=== PATIENT | male | born 1960 | race Caucasian/White ===

== ENCOUNTER 2020-02-16 06:25 | Day surgery (SDC) | payer BC ==
[~2020-02-16] VITALS: Ht 177.8 cm; Wt 64.0 kg
[~2020-02-16 06:25] MED LIST: PRILOSEC OTC20 MG PO
--- NOTE | 2020-02-16 08:16 | NUR ---
02/16/20 0816 Laina Hameed 0808 PATIENT ARRIVES TO PACU UNRESPONSIVE TO VERBAL STIMULI. RESP EVEN AND UNLABORED, NC AT 3 LITERS, TURNED OFF ON ARRIVAL TO PACU. 0815 PATIENT SLEEPING. AWAKENS WITH REPEATED VERBAL STIMULI, REPOSITIONS SELF TO BACK, THEN BACK TO SLEEP. RESP EVEN AND UNLABORED, ROOM AIR SATS >90%. NEEDS FREQUENT REMINDERS TO "TAKE A DEEP BREATH."
--- NOTE | 2020-02-16 10:40 | NUR ---
PT ALERT, ORIENTED AND SUPPORTED BY HIS RONNI. PT HAS HAD PREVIOUS SCOPES, ALL QUESTIONS ASKED WERE ANSWERED. GAVE MG, MANAGER CCUKIT TRISTAN IN TO TAKE PT
--- NOTE | 2020-02-16 11:19 | OR ---
[facility] [address], [place] [address] Signed DATE OF OPERATION: 02/16/2020 SURGEON: Jason Silva MD PREOPERATIVE DIAGNOSES: 1. Gastroesophageal reflux disease. 2. History of esophagitis. 3. Hiatal hernia. 4. Mother with colon cancer, age 78. 5. Personal history of rectal polyps, 2011. POSTOPERATIVE DIAGNOSES: 1. Small hiatal hernia. 2. Mild diffuse gastritis. 3. Unremarkable colonoscopy. PROCEDURES: 1. EGD with CLOtest and biopsies of the antrum and GE junction. 2. Colonoscopy without biopsy. ESTIMATED BLOOD LOSS: None. INDICATIONS: Lawrence is a 60-year-old gentleman, asked to see me for a followup upper and lower endoscopy. He mentioned his hiatal hernia and acid reflux for many years. When he was checked the last time, he did have some distal esophagitis. He said he does great so long as he takes his Prilosec. He told me his last upper and lower endoscopy was in 2011. Also, his mother was diagnosed and of colon cancer the same year at age 78, unfortunately was stage IV when diagnosed. Lawrence had an adenomatous polyp removed in the bottom of the rectum back in 2011. In the meantime, he said he is doing great. He said he has no lower GI complaints. In the office, I gave him a pamphlet on both upper and lower endoscopy. He understands the nature of the two tests along with the risks including, but not limited to gas bloating, crampy abdominal pain, bleeding, perforation requiring surgery, and missed diagnosis. He also understands the need for IV conscious sedation. He had expressed understanding and wished to proceed. DESCRIPTION OF PROCEDURE: Lawrence was taken into our endoscopy suite and placed in the supine semi-recumbent position. The posterior oropharynx was anesthetized with Hurricaine spray. Bite block was Electronically Signed By: JASON SILVA MD 02/16/20 1119 PATIENT NAME: JESSICA MERAZ OPERATIVE REPORT DATE OF : 64 REPORT #: [id number] PHYSICIAN: JASON SILVA MD PCP: MICHEL GUERRERO MD REPORT IS CONFIDENTIAL AND NOT TO BE RELEASED WITHOUT AUTHORIZATION [facility] [address], [place] [address] Signed utilized for the case. He was given a total of 8 mg of Versed and 175 mcg of fentanyl to cover the case. The adult gastroscope had been introduced and advanced out into the third portion of the duodenum. His duodenum and pyloric channel were unremarkable. The stomach showed some very mild diffuse erythematous changes. We went and took a biopsy of the antrum for CLOtest as well as pathologic review. Upon retroflexion of scope, he does have a small hiatal hernia. The scope was withdrawn up to the area of GE junction, which was compliant without stricture. Very minimal disruption to his Z-line. We went ahead and took one biopsy along the Z-line for pathologic review. There was no Reddy's mucosa. The distal middle and upper esophagus were unremarkable. After this, the gas was suctioned out and the gastroscope removed. Lawrence tolerated procedure quite well. Lawrence was rotated into the left lateral decubitus position. He was maintained on IV sedation with Versed and fentanyl. A digital rectal exam was performed and he does have a mildly enlarged and moderately indurated prostate gland. The left is a little more prominent than the right. The adult colonoscope was then introduced, advanced all around into the cecum under direct visualization of camera. He required a little extra sedation and some abdominal compression in order to advance the scope. He had some areas of liquid stool, which we were able to suction out. We could see the appendiceal orifice and the ileocecal valve. The scope was slowly withdrawn. We took pictures throughout for photodocumentation. There was no diverticula. There were no polyps. The rectum was unremarkable. Upon retroflexion of scope, there was no evidence of any internal hemorrhoids. After this, the gas was suctioned out and colonoscope removed. Lawrence tolerated the procedure quite well. RECOMMENDATIONS: I will see Lawrence back in my office in 7 to 14 days to review his results. Based on his personal and family history, it looks like he will need a colonoscopy every 5 years. Jason Silva MD ALB/MODL /[id number] cc: Jason Silva MD Electronically Signed By: JASON SILVA MD 02/16/20 1119 PATIENT NAME: JESSICA MERAZ OPERATIVE REPORT DATE OF : 64 REPORT #: [id number] PHYSICIAN: JASON SILVA MD PCP: MICHEL GUERRERO MD REPORT IS CONFIDENTIAL AND NOT TO BE RELEASED WITHOUT AUTHORIZATION [address] [address] Signed Michel Guerrero MD Copies: JASON SILVA MD, RUSSELL BARR MD ~ Electronically Signed By: JASON SILVA MD 02/16/20 1119 PATIENT NAME: KTJESSICA CARUSO OPERATIVE REPORT DATE OF : 64 REPORT #: [id number] PHYSICIAN: JASON SILVA MD PCP: MICHEL GUERRERO MD REPORT IS CONFIDENTIAL AND NOT TO BE RELEASED WITHOUT AUTHORIZATION
--- NOTE | 2020-02-17 12:06 | PATH ---
[facility] [address], [place] [address] Signed SPECIMEN(S): A ANTRUM/PYLORUS SPECIMEN(S): B GE JUNCTION SPECIMEN SOURCE: A. ANTRUM/PYLORUS B. GE JUNCTION CLINICAL HISTORY: Hx of polyps, hiatal hernia. MICROSCOPIC DESCRIPTION: Histologic sections of all submitted blocks are examined by light microscopy. These findings, together with the gross examination, support the pathologic diagnosis. FINAL PATHOLOGIC DIAGNOSIS: A. Stomach, antrum/pylorus, biopsy: - Antral mucosa with mild chronic, inactive gastritis. - Negative for Helicobacter organisms on HE stain. - Negative for dysplasia or malignancy. B. Gastroesophageal junction, biopsy: - Cardia-type gastric mucosa with focal complete intestinal metaplasia arising in chronic, inactive gastritis. - Negative for dysplasia or malignancy. NAL:emh:C2NR GROSS DESCRIPTION: Two specimens are received in two containers, labeled "TJ." A. The specimen, labeled "TJ, #1," and designated on the requisition "antrum/pylorus," is received in formalin and consists of one pantoja soft tissue fragment that measures 0.4 cm in greatest dimension. The specimen is entirely submitted in cassette (A1). B. The specimen, labeled "TJ, #2," and designated on the requisition "GE junction," is received in formalin and consists of one pantoja soft tissue fragment that measures 0.3 cm in greatest dimension. The specimen is entirely submitted in cassette (B1). AT (under the direct supervision of a pathologist) The Gross Description was prepared using a voice recognition system. The report was reviewed for accuracy; however, sound-alike word errors, addition and/or deletions may occur. If there is any question about this report, please contact Client Services. PATIENT NAME: JESSICA MERAZ PATHOLOGY DATE OF : 64 REPORT #: [id number] PHYSICIAN: ANNABEL GRAVES PCP: MICHEL SWIFT MD REPORT IS CONFIDENTIAL AND NOT TO BE RELEASED WITHOUT AUTHORIZATION [facility] [address] [address] Signed PERFORMING LABORATORY: The technical component was performed by [employer] [facility], [address] [place] [address] (Inspector Publications: Sunitha Valdez MD; CLIA# [id number]). Professional interpretation was performed by [facility], [address] [place] [id number] (CLIA# [id number]). Diagnostician: Zoila Healy MD Pathologist Electronically Signed 02/17/2020 Copies: ~ PATIENT NAME: JESSICA MERAZ PATHOLOGY DATE OF : 64 REPORT #: [id number] PHYSICIAN: ANNABEL GRAVES PCP: MICHEL SWIFT MD REPORT IS CONFIDENTIAL AND NOT TO BE RELEASED WITHOUT AUTHORIZATION
== END 2020-02-16 09:15 | disposition home or self-care (01) ==
LOC: DS 06:25 → OPS 06:25 → DS 06:45 → OPS 09:15
PROVIDERS: ATTEND Colon & Rectal Surgery
PROC: 0DB78ZX Excision of Stomach, Pylorus, Via Natural or Artificial Opening Endoscopic, Diagnostic (ICD-10-PCS; 2020-02-16)
PROC: 0DJD8ZZ Inspection of Lower Intestinal Tract, Via Natural or Artificial Opening Endoscopic (ICD-10-PCS; principal; 2020-02-16 06:45)
PROC: 0DB48ZX Excision of Esophagogastric Junction, Via Natural or Artificial Opening Endoscopic, Diagnostic (ICD-10-PCS; 2020-02-16 06:45)
DX: Z09 Encounter for follow-up examination after completed treatment for conditions other than malignant neoplasm (principal); K29.50 Unspecified chronic gastritis without bleeding; K22.70 Barrett's esophagus without dysplasia; K44.9 Diaphragmatic hernia without obstruction or gangrene; K21.9 Gastro-esophageal reflux disease without esophagitis; F17.210 Nicotine dependence, cigarettes, uncomplicated; Z80.0 Family history of malignant neoplasm of digestive organs; Z87.19 Personal history of other diseases of the digestive system; Z79.899 Other long term (current) drug therapy
CPT/HCPCS: 86677; 99153; G0500; J2250; J3010